=== PATIENT | male | born 1970 | race African-American/Black ===

== ENCOUNTER 2019-09-16 11:49 | Inpatient (IN) | payer OTHER ==
--- NOTE | 2019-09-16 12:29 | HP ---
COWS - Scale Resting Pulse: 0= [place] 80 or Below Sweatin= No chills or Flushing Restless Observation: 0= Sits Still Pupil Size: 0= Normal to Room Light Bone or Joint Aches: 0= None Runny Nose/ Eye Tearin= None GI Upset > 30mins: 0= None Tremor Observation: 0= None Yawning Observation: 0= None Anxiety or Irritability: 0= None Goose Flesh Skin: 0=Smooth Skin (just used this morning so cows are still low) COWS Score: 0 CIWA Score - Admission Criteria [facility]ASAS Guidelines: Admission for Medically Managed Detox: Requires at least one of the followin. CIWA greater than 12 2. Seizures within the past 24 hours 3. Delirium tremens within the past 24 hours 4. Hallucinations within the past 24 hours 5. Acute intervention needed for co occurring medical disorder 6. Acute intervention needed for co occurring psychiatric disorder 7. Severe withdrawal that cannot be handled at a lower level of care (continued vomiting, continued diarrhea, abnormal vital signs) requiring intravenous medication and/or fluids 8. Admitting History and Physical - Admission Chief Complaint: " I want to get clean." History of Present Illness: 48 year old male with history of opioid dependence with withdrawal, cocaine use disorder, alcohol use disorder. He is using at least 10-12 bags of heroin per day, last used this morning. He denies any overdoses. He is using $50 $60 cocaine per day, last used yesterday. He is drinking about 2x-4x/wk, 1 six pack or one pint of vodka per episode, last drank yesterday. He smokes 11 ciggs per day, since age 16 years old. He has been in detox in the past 2012 [facility]. He was abstinent and just relapsed 1 month ago. PMH: Osteoarthritis L Hip. Psurg: None but was getting Hip injections with cortisone Patient denies any legal issues. He is domiciled in the [place]. History Source: Patient Limitations to Obtaining History: No Limitations - Past Surgical History Past Surgical History: Yes: None - Smoking History Smoking history: Current every day smoker Have you smoked in the past 12 months: Yes Aproximately how many cigarettes per day: 11 - Alcohol/Substance Use Hx Alcohol Use: Yes ( six pack beer daily) Number of Drinks Daily: 6 History of Substance Use: reports: Cocaine, Heroin Date of Last Use: 09/16/19 - Social History Usual Living Arrangement: Yes: Alone Do you think of yourself as: Straight/Heterosexual ADL: Independent Occupation: peer advocate at [employer] History of Recent Travel: No Admission ROS S - HPI Allergies/Adverse Reactions: Allergies Allergy/AdvReac Type Severity Reaction Status Date / Time shellfish derived AdvReac Severe Difficulty Verified 09/16/19 12:05 Breathing - Ebola screening Have you traveled outside of the country in the last 21 days: No Have you had contact with anyone from an Ebola affected area: No Do you have a fever: No Patient History - Patient Medical History Other Medical History: Osteoarthritis - Patient Surgical History Past Surgical History: No - PPD History Previous Implant?: No Documented Results: Positive w/o proof Implanted On Prior [facility] Admission?: No Date: 06/21/19 Results: negative cxr PPD to be Administered?: No - Smoking Cessation Smoking history: Current every day smoker Have you smoked in the past 12 months: Yes Aproximately how many cigarettes per day: 11 Hx Chewing Tobacco Use: No Initiated information on smoking cessation: Yes 'Breaking Loose' booklet given: 09/16/19 - Substances abused Alcohol Substance route: Oral Frequency: 3-6 times per week Amount used: 6 pack of 24oz beers Age of first use: 18 Date of last use: 09/15/19 Heroin Substance route: Inhalation Frequency: Daily Amount used: $100 Age of first use: 20 Date of last use: 09/16/19 Cocaine Substance route: Smoking Frequency: Daily Amount used: $60-80 Age of first use: 27 Date of last use: 09/15/19 Crack Substance route: Smoking Frequency: Daily Amount used: $100 Age of first use: 27 Date of last use: 09/15/19 Admission Physical Exam S - Vital Signs Vital Signs: Vital Signs - 24 hr 09/16/19 11:56 Temperature 97 F L Pulse Rate 58 L Respiratory 18 Rate Blood Pressure 124/67 - Physical General Appearance: Yes: No Apparent Distress, Nourished HEENTM: Yes: EOMI, Hearing grossly Normal, Normal ENT Inspection, Normocephalic , Normal Voice, KWASI, Pharynx Normal, Tm's normal, Other (pupils are pinpoint) Respiratory: Yes: Chest Non-Tender, Lungs Clear, Normal Breath Sounds Neck: Yes: No masses,lesions,Nodules, Supple, Trachea in good position Breast: Yes: Within Normal Limits Cardiology: Yes: Regular Rhythm, Regular Rate, S1, S2 Abdominal: Yes: Normal Bowel Sounds, Non Tender, Flat Genitourinary: Yes: Within Normal Limits Back: Yes: Normal Inspection Musculoskeletal: Yes: full range of Motion, Gait Steady, Pelvis Stable Extremities: Yes: Normal Capillary Refill, Normal Inspection, Normal Range of Motion, Non-Tender 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 NML intact, Fully Oriented, Alert, Motor Strength 5/5, Normal Mood/Affect, Normal Response Integumentary: Yes: Normal Color, Warm Lymphatic: Yes: Within Normal Limits - Diagnostic (1) Opioid dependence, uncomplicated Current Visit: Yes Status: Acute Cleared for Admission [facility] - Detox or Rehab [facility] Level of Care: Medically Managed Detox Regimen/Protocol: Methadone Claeared for Rehab Admission: No Screened but not Admitted - Documentation of Visit Screened but not Admitted: No Inpatient Rehab Admission - Rehab Decision to Admit Inpatient rehab admission?: No
[2019-09-16] MEDS ORDERED: BISMUTH SUBSALICYLATE 262 MG/15 ML BTL PO PRN (12:36)
[2019-09-16] MEDS ORDERED: IBUPROFEN 400 MG TABLET (FP) PO PRN (12:36)
[2019-09-16] MEDS ORDERED: MAGNESIUM CITRATE 300 ML BOTTLE PO PRN (12:36)
[2019-09-16] MEDS ORDERED: cloNIDine HCL 0.1 MG TABLET PO PRN (12:36)
[2019-09-16] MEDS ORDERED: MAGNESIUM HYDROX 2400MG/30ML ORAL SUSPENSION 30 ML CUP PO PRN (12:36)
[2019-09-16] MEDS ORDERED: ACETAMINOPHEN 325 MG TABLET (FP) PO PRN ×2 (12:36)
[2019-09-16] MEDS ORDERED: MAG HYDROX/AL HYDROX/SIMETH 30 ML UNIT-DOSE CUP PO PRN (12:36)
[2019-09-16] MEDS ORDERED: METHADONE HCL 10 MG TABLET (FOR DETOX USE ONLY) PO ONE (13:45)
[2019-09-16 14:28] LABS: HEMOGLOBIN 13.6 GM/dL (11.7-16.9); MCHC 33.3 g/dl (32.0-35.9); MEAN CELL VOLUME 93.2 fl (80-96); MEAN PLT VOLUME 8.6 fl (7.5-11.1); PLATELET COUNT 269 K/MM3 (134-434); RBC 4.39 M/mm3 (4.00-5.60); RDW 13.1 % (11.9-15.9); WHITE BLOOD COUNT 4.5 K/mm3 (4.0-10.0)
[2019-09-16 14:38] LABS: ALBUMIN 3.6 g/dl (3.4-5.0); BLOOD UREA NITROGEN 17.6 mg/dL (7-18); CALCIUM 9.2 mg/dL (8.5-10.1); CREATININE 1.2 mg/dL (0.55-1.3); POTASSIUM 4.2 mmol/L (3.5-5.1); TOT PROT 7.7 g/dl (6.4-8.2)
[2019-09-16] MEDS: THIAMINE HCL 100 MG TABLET (FP) PO SCH (23:02)
[2019-09-17] MEDS ORDERED: METHADONE HCL 5 MG TABLET (FOR DETOX USE ONLY) ONE (08:48)
[2019-09-17] MEDS ORDERED: METHADONE HCL 10 MG TABLET (FOR DETOX USE ONLY) ONE (08:48)
[2019-09-17] MEDS ORDERED: METHADONE (DETOX) 20 MG, METHADONE (DETOX) 5 MG PO ONE (10:00)
[2019-09-17] MEDS: PRENATAL VITAMINS W/ FOLIC ACID TABLET (FP) PO SCH (10:08)
[2019-09-17] MEDS: NICOTINE 14 MG/24 HOURS TOPICAL PATCH TD SCH (10:09)
--- NOTE | 2019-09-17 10:45 | PN ---
BHS COWS - Scale Resting Pulse: 0= [place] 80 or Below Sweatin= Chills/Flushing Restless Observation: 1= Difficult to Sit Still Pupil Size: 0= Normal to Room Light Bone or Joint Aches: 2= Severe Diffuse Aches Runny Nose/ Eye Tearin= Nasal Congestion GI Upset > 30mins: 1= Stomach Cramp Tremor Observation of Outstretched Hands: 2= Slight Tremor Visible Yawning Observation: 2= >3x During Session Anxiety or Irritability: 2=Irritable/Anxious Goose Flesh Skin: 0=Smooth Skin COWS Score: 12 BHS Progress Note (SOAP) Subjective: sweats shakes body aches interrupted sleep poor appetite Objective: 09/17/19 10:45 Vital Signs Temperature 97.9 F 09/17/19 09:23 Pulse Rate 53 L 09/17/19 09:23 Respiratory Rate 18 09/17/19 09:23 Blood Pressure 134/73 09/17/19 09:23 O2 Sat by Pulse Oximetry (%) Laboratory Tests 09/16/19 09/16/19 09/16/19 10:50 10:50 10:50 WBC 4.5 RBC 4.39 Hgb 13.6 Hct 41.0 MCV 93.2 MCH 31.0 MCHC 33.3 RDW 13.1 Plt Count 269 MPV 8.6 Sodium 143 Potassium 4.2 Chloride 109 H Carbon Dioxide 30 Anion Gap 4 L BUN 17.6 Creatinine 1.2 Est GFR (CKD-EPI)AfAm 83.54 Est GFR (CKD-EPI)NonAf 72.08 Random Glucose 88 Calcium 9.2 Total Bilirubin 1.0 AST 20 ALT 22 Alkaline Phosphatase 133 H Total Protein 7.7 Albumin 3.6 RPR Titer Nonreactive HIV 1&2 Antibody Screen HIV P24 Antigen 09/16/19 12:00 WBC RBC Hgb Hct MCV MCH MCHC RDW Plt Count MPV Sodium Potassium Chloride Carbon Dioxide Anion Gap BUN Creatinine Est GFR (CKD-EPI)AfAm Est GFR (CKD-EPI)NonAf Random Glucose Calcium Total Bilirubin AST ALT Alkaline Phosphatase Total Protein Albumin RPR Titer HIV 1&2 Antibody Screen Negative HIV P24 Antigen Negative aaox3 ambulating no acute distress Assessment: 09/17/19 10:45 withdrawals Plan: continue detox increase fluids
[2019-09-17] MEDS: THIAMINE HCL 100 MG TABLET (FP) PO SCH (21:44)
[2019-09-17] MEDS: MELATONIN 5 MG TABLETS PO PRN (21:44)
[2019-09-17] MEDS: hydrOXYzine PAMOATE 25 MG CAPSULE (FP) PO PRN (21:44)
[2019-09-17] MEDS: MENTHOL/PHENOL 1 EACH UD MM PRN (21:45)
[2019-09-18] MEDS ORDERED: METHADONE HCL 10 MG TABLET (FOR DETOX USE ONLY) PO ONE (10:00)
[2019-09-18] MEDS: NICOTINE 14 MG/24 HOURS TOPICAL PATCH TD SCH (10:31)
[2019-09-18] MEDS: PRENATAL VITAMINS W/ FOLIC ACID TABLET (FP) PO SCH (10:31)
--- NOTE | 2019-09-18 13:36 | PN ---
BHS COWS - Scale Resting Pulse: 0= [place] 80 or Below Sweatin= Chills/Flushing Restless Observation: 1= Difficult to Sit Still Pupil Size: 0= Normal to Room Light Bone or Joint Aches: 1= Mild Discomfort Runny Nose/ Eye Tearin= Nasal Congestion GI Upset > 30mins: 1= Stomach Cramp Tremor Observation of Outstretched Hands: 1= Tremor [place], Not Seen Yawning Observation: 2= >3x During Session Anxiety or Irritability: 2=Irritable/Anxious Goose Flesh Skin: 0=Smooth Skin COWS Score: 10 BHS Progress Note (SOAP) Subjective: c/o of interrupted sleep, chills, sweats, body aches Objective: 09/18/19 13:34 Vital Signs Temperature 98.2 F 09/18/19 10:13 Pulse Rate 55 L 09/18/19 10:13 Respiratory Rate 16 09/18/19 10:13 Blood Pressure 138/72 09/18/19 10:13 O2 Sat by Pulse Oximetry (%) Laboratory Last Values WBC 4.5 K/mm3 (4.0-10.0) 09/16/19 10:50 RBC 4.39 M/mm3 (4.00-5.60) 09/16/19 10:50 Hgb 13.6 GM/dL (11.7-16.9) 09/16/19 10:50 Hct 41.0 % (35.4-49) 09/16/19 10:50 MCV 93.2 fl (80-96) 09/16/19 10:50 MCH 31.0 pg (25.7-33.7) 09/16/19 10:50 MCHC 33.3 g/dl (32.0-35.9) 09/16/19 10:50 RDW 13.1 % (11.9-15.9) 09/16/19 10:50 Plt Count 269 K/MM3 (134-434) 09/16/19 10:50 MPV 8.6 fl (7.5-11.1) 09/16/19 10:50 Sodium 143 mmol/L (136-145) 09/16/19 10:50 Potassium 4.2 mmol/L (3.5-5.1) 09/16/19 10:50 Chloride 109 mmol/L (98-107) H 09/16/19 10:50 Carbon Dioxide 30 mmol/L (21-32) 09/16/19 10:50 Anion Gap 4 MMOL/L (8-16) L 09/16/19 10:50 BUN 17.6 mg/dL (7-18) 09/16/19 10:50 Creatinine 1.2 mg/dL (0.55-1.3) 09/16/19 10:50 Est GFR (CKD-EPI)AfAm 83.54 09/16/19 10:50 Est GFR (CKD-EPI)NonAf 72.08 09/16/19 10:50 Random Glucose 88 mg/dL (74-106) 09/16/19 10:50 Calcium 9.2 mg/dL (8.5-10.1) 09/16/19 10:50 Total Bilirubin 1.0 mg/dL (0.2-1) 09/16/19 10:50 AST 20 U/L (15-37) 09/16/19 10:50 ALT 22 U/L (13-61) 09/16/19 10:50 Alkaline Phosphatase 133 U/L (45-117) H 09/16/19 10:50 Total Protein 7.7 g/dl (6.4-8.2) 09/16/19 10:50 Albumin 3.6 g/dl (3.4-5.0) 09/16/19 10:50 RPR Titer Nonreactive (NONREACTIVE) 09/16/19 10:50 HIV 1&2 Antibody Screen Negative 09/16/19 12:00 HIV P24 Antigen Negative 09/16/19 12:00 Assessment: 09/18/19 13:34 Aox3 no acute distress EENT WNL Full ROM ambulating in the unit withdrawal sx Plan: increase PO fluids continue detox one time dose Benadryl 50mg HS for sleep d/t insomnia continue detox continue to monitor
[2019-09-18] MEDS ORDERED: diphenhydrAMINE HCL 25 MG CAPSULE (FP) PO ONE (22:00)
[2019-09-18] MEDS: THIAMINE HCL 100 MG TABLET (FP) PO SCH (22:29)
[2019-09-18] MEDS: MENTHOL/PHENOL 1 EACH UD MM PRN (22:31)
[2019-09-19] MEDS ORDERED: METHADONE HCL 5 MG TABLET (FOR DETOX USE ONLY) ONE (08:44)
[2019-09-19] MEDS ORDERED: METHADONE HCL 10 MG TABLET (FOR DETOX USE ONLY) ONE (08:44)
[2019-09-19] MEDS: NICOTINE 14 MG/24 HOURS TOPICAL PATCH TD SCH (09:40)
[2019-09-19] MEDS: PRENATAL VITAMINS W/ FOLIC ACID TABLET (FP) PO SCH (09:40)
[2019-09-19] MEDS ORDERED: METHADONE (DETOX) 10 MG, METHADONE (DETOX) 5 MG PO ONE (10:00)
--- NOTE | 2019-09-19 12:47 | PN ---
BHS COWS - Scale Resting Pulse: 0= [place] 80 or Below Sweatin= Beads of Sweat on Face Restless Observation: 1= Difficult to Sit Still Pupil Size: 0= Normal to Room Light Bone or Joint Aches: 1= Mild Discomfort Runny Nose/ Eye Tearin= None GI Upset > 30mins: 0= None Tremor Observation of Outstretched Hands: 2= Slight Tremor Visible Yawning Observation: 1= 1-2x During Session Anxiety or Irritability: 2=Irritable/Anxious Goose Flesh Skin: 0=Smooth Skin COWS Score: 10 S Progress Note (SOAP) Subjective: c/o sweats, anxiety, headache. Objective: 09/19/19 13:10 Vital Signs 09/19/19 09/19/19 09/19/19 07:37 09:41 13:02 Temperature 97.7 F 97.2 F L 97.7 F Pulse Rate 52 L 51 L 63 Respiratory 18 18 18 Rate Blood Pressure 116/71 128/76 127/79 Laboratory Last Values WBC 4.5 K/mm3 (4.0-10.0) 09/16/19 10:50 RBC 4.39 M/mm3 (4.00-5.60) 09/16/19 10:50 Hgb 13.6 GM/dL (11.7-16.9) 09/16/19 10:50 Hct 41.0 % (35.4-49) 09/16/19 10:50 MCV 93.2 fl (80-96) 09/16/19 10:50 MCH 31.0 pg (25.7-33.7) 09/16/19 10:50 MCHC 33.3 g/dl (32.0-35.9) 09/16/19 10:50 RDW 13.1 % (11.9-15.9) 09/16/19 10:50 Plt Count 269 K/MM3 (134-434) 09/16/19 10:50 MPV 8.6 fl (7.5-11.1) 09/16/19 10:50 Sodium 143 mmol/L (136-145) 09/16/19 10:50 Potassium 4.2 mmol/L (3.5-5.1) 09/16/19 10:50 Chloride 109 mmol/L (98-107) H 09/16/19 10:50 Carbon Dioxide 30 mmol/L (21-32) 09/16/19 10:50 Anion Gap 4 MMOL/L (8-16) L 09/16/19 10:50 BUN 17.6 mg/dL (7-18) 09/16/19 10:50 Creatinine 1.2 mg/dL (0.55-1.3) 09/16/19 10:50 Est GFR (CKD-EPI)AfAm 83.54 09/16/19 10:50 Est GFR (CKD-EPI)NonAf 72.08 09/16/19 10:50 Random Glucose 88 mg/dL (74-106) 09/16/19 10:50 Calcium 9.2 mg/dL (8.5-10.1) 09/16/19 10:50 Total Bilirubin 1.0 mg/dL (0.2-1) 09/16/19 10:50 AST 20 U/L (15-37) 09/16/19 10:50 ALT 22 U/L (13-61) 09/16/19 10:50 Alkaline Phosphatase 133 U/L (45-117) H 09/16/19 10:50 Total Protein 7.7 g/dl (6.4-8.2) 09/16/19 10:50 Albumin 3.6 g/dl (3.4-5.0) 09/16/19 10:50 RPR Titer Nonreactive (NONREACTIVE) 09/16/19 10:50 HIV 1&2 Antibody Screen Negative 09/16/19 12:00 HIV P24 Antigen Negative 09/16/19 12:00 Labs noted. Assessment: 09/19/19 13:11 AOX3, in no acute respiratory distress. Full ROM, ambulating in the unit. Withdrawal symptoms. Plan: continue detox.
[2019-09-19] MEDS: MELATONIN 5 MG TABLETS PO PRN (22:07)
[2019-09-19] MEDS: THIAMINE HCL 100 MG TABLET (FP) PO SCH (22:07)
[2019-09-19] MEDS: hydrOXYzine PAMOATE 25 MG CAPSULE (FP) PO PRN (22:07)
[2019-09-19] MEDS: METHOCARBAMOL 500 MG TABLET PO PRN (22:08)
[2019-09-20] MEDS ORDERED: METHADONE HCL 10 MG TABLET (FOR DETOX USE ONLY) PO ONE (10:00)
[2019-09-20] MEDS: PRENATAL VITAMINS W/ FOLIC ACID TABLET (FP) PO SCH (10:10)
[2019-09-20] MEDS: hydrOXYzine PAMOATE 25 MG CAPSULE (FP) PO PRN ×2 (10:11→22:00)
[2019-09-20] MEDS: NICOTINE 14 MG/24 HOURS TOPICAL PATCH TD SCH (10:11)
--- NOTE | 2019-09-20 11:43 | PN ---
BHS COWS - Scale Resting Pulse: 1= [place] 81-100 Sweatin= Chills/Flushing Restless Observation: 1= Difficult to Sit Still Pupil Size: 0= Normal to Room Light Bone or Joint Aches: 1= Mild Discomfort Runny Nose/ Eye Tearin= None GI Upset > 30mins: 0= None Tremor Observation of Outstretched Hands: 0= None Yawning Observation: 4= Several Times/Minute Anxiety or Irritability: 1=Feels Anxious/Irritable Goose Flesh Skin: 0=Smooth Skin COWS Score: 9 BHS Progress Note (SOAP) Subjective: pt here with history of opioid dependence with withdrawal, cocaine use disorder , alcohol use disorder. O: Vital Signs - 24 hr 09/19/19 09/19/19 09/19/19 13:02 17:15 21:33 Temperature 97.7 F 98.1 F 96.1 F L Pulse Rate 63 52 L 52 L Respiratory 18 18 18 Rate Blood Pressure 127/79 124/74 124/65 09/20/19 09/20/19 09/20/19 00:30 06:00 09:46 Temperature 97.9 F 98.1 F Pulse Rate 57 L 60 Respiratory 18 18 18 Rate Blood Pressure 103/59 L 136/72 Laboratory Tests 09/16/19 09/16/19 09/16/19 10:50 10:50 10:50 WBC 4.5 RBC 4.39 Hgb 13.6 Hct 41.0 MCV 93.2 MCH 31.0 MCHC 33.3 RDW 13.1 Plt Count 269 MPV 8.6 Sodium 143 Potassium 4.2 Chloride 109 H Carbon Dioxide 30 Anion Gap 4 L BUN 17.6 Creatinine 1.2 Est GFR (CKD-EPI)AfAm 83.54 Est GFR (CKD-EPI)NonAf 72.08 Random Glucose 88 Calcium 9.2 Total Bilirubin 1.0 AST 20 ALT 22 Alkaline Phosphatase 133 H Total Protein 7.7 Albumin 3.6 RPR Titer Nonreactive HIV 1&2 Antibody Screen HIV P24 Antigen 09/16/19 12:00 WBC RBC Hgb Hct MCV MCH MCHC RDW Plt Count MPV Sodium Potassium Chloride Carbon Dioxide Anion Gap BUN Creatinine Est GFR (CKD-EPI)AfAm Est GFR (CKD-EPI)NonAf Random Glucose Calcium Total Bilirubin AST ALT Alkaline Phosphatase Total Protein Albumin RPR Titer HIV 1&2 Antibody Screen Negative HIV P24 Antigen Negative a/p: OUD- methadone detox- d/w pt half-way MAT- 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
[2019-09-20] MEDS: THIAMINE HCL 100 MG TABLET (FP) PO SCH (21:47)
[2019-09-20] MEDS: METHOCARBAMOL 500 MG TABLET PO PRN (22:00)
[2019-09-21] MEDS ORDERED: METHADONE HCL 5 MG TABLET (FOR DETOX USE ONLY) PO ONE (06:00)
--- NOTE | 2019-09-21 09:20 | DS ---
[facility] Detox Discharge Summary Admission Date: 09/16/19 Discharge Date: 09/21/19 - History Present History: Alcohol Dependence, Cocaine Dependence, Opioid Dependence Pertinent Past History: 48 year old male with history of opioid dependence with withdrawal, cocaine use disorder, alcohol use disorder-completed detox, pt states he will go for outpt treatment and 1:1 counseling. Pt is a peer support counselor Vital Signs - 24 hr 09/20/19 09/20/19 09/20/19 09:46 13:29 17:41 Temperature 98.1 F 97.9 F 98.6 F Pulse Rate 60 54 L 52 L Respiratory 18 16 18 Rate Blood Pressure 136/72 119/63 129/72 09/20/19 09/21/19 09/21/19 21:56 00:30 03:52 Temperature 98.2 F Pulse Rate 57 L Respiratory 18 18 16 Rate Blood Pressure 118/66 09/21/19 08:45 Temperature 97.9 F Pulse Rate 59 L Respiratory 18 Rate Blood Pressure 109/59 L Laboratory Tests 09/16/19 09/16/19 09/16/19 10:50 10:50 10:50 WBC 4.5 RBC 4.39 Hgb 13.6 Hct 41.0 MCV 93.2 MCH 31.0 MCHC 33.3 RDW 13.1 Plt Count 269 MPV 8.6 Sodium 143 Potassium 4.2 Chloride 109 H Carbon Dioxide 30 Anion Gap 4 L BUN 17.6 Creatinine 1.2 Est GFR (CKD-EPI)AfAm 83.54 Est GFR (CKD-EPI)NonAf 72.08 Random Glucose 88 Calcium 9.2 Total Bilirubin 1.0 AST 20 ALT 22 Alkaline Phosphatase 133 H Total Protein 7.7 Albumin 3.6 RPR Titer Nonreactive HIV 1&2 Antibody Screen HIV P24 Antigen 09/16/19 12:00 WBC RBC Hgb Hct MCV MCH MCHC RDW Plt Count MPV Sodium Potassium Chloride Carbon Dioxide Anion Gap BUN Creatinine Est GFR (CKD-EPI)AfAm Est GFR (CKD-EPI)NonAf Random Glucose Calcium Total Bilirubin AST ALT Alkaline Phosphatase Total Protein Albumin RPR Titer HIV 1&2 Antibody Screen Negative HIV P24 Antigen Negative a/p: completed detox- f/u outpt for use disorders - Physical Exam Results Vital Signs: Vital Signs Temperature 97.9 F 09/21/19 08:45 Pulse Rate 59 L 09/21/19 08:45 Respiratory Rate 18 09/21/19 08:45 Blood Pressure 109/59 L 09/21/19 08:45 O2 Sat by Pulse Oximetry (%) - Treatment Hospital Course: Detox Protocol Followed, Detoxed Safely, Responded well, Discharged Condition Good - Medication Discharge Medications: Ambulatory Orders NK [No Known Home Medication] 09/16/19
[2019-09-21 10:04] VITALS: BP 116/65; PULSE 64; TEMP 98.2
== END 2019-09-21 10:10 | disposition home or self-care (01) | DRG 773 ==
LOC: YASAS 11:49 → Y6N 13:01 → UNDODISIN 09-19 22:00
PROVIDERS: ADMIT Allergy & Immunology; ATTEND Allergy & Immunology
PROC: HZ2ZZZZ Detoxification Services for Substance Abuse Treatment (ICD-10-PCS; principal; 2019-09-16)
DX: F11.23 Opioid dependence with withdrawal (principal); F10.230 Alcohol dependence with withdrawal, uncomplicated; F14.20 Cocaine dependence, uncomplicated; F17.210 Nicotine dependence, cigarettes, uncomplicated; M16.12 Unilateral primary osteoarthritis, left hip; Z91.013 Allergy to seafood
CPT/HCPCS: 36415; 71046-TC-FY; 80053; 85027; 86593; 87389; J0735

== ENCOUNTER 2020-09-19 15:13 | Inpatient (IN) | payer OTHER ==
[2020-09-19] MEDS ORDERED: METHADONE HCL 10 MG TABLET (FOR DETOX USE ONLY) PO ONE (18:04)
[2020-09-19] MEDS ORDERED: cloNIDine HCL 0.1 MG TABLET PO PRN (18:04)
[2020-09-19] MEDS ORDERED: BISMUTH SUBSALICYLATE 524 MG/30 ML UD PO PRN (18:05)
[2020-09-19] MEDS ORDERED: MAGNESIUM HYDROX 2400MG/30ML ORAL SUSPENSION 30 ML CUP PO PRN (18:05)
[2020-09-19] MEDS ORDERED: NICOTINE POLACRILEX 2 MG GUM BUC PRN (18:05)
[2020-09-19] MEDS ORDERED: MAG HYDROX/AL HYDROX/SIMETH 30 ML UNIT-DOSE CUP PO PRN (18:05)
[2020-09-19] MEDS ORDERED: ACETAMINOPHEN 325 MG TABLET (FP) PO PRN ×2 (18:05)
[2020-09-19] MEDS ORDERED: IBUPROFEN 400 MG TABLET (FP) PO PRN (18:05)
[2020-09-19] MEDS ORDERED: ONDANSETRON *ODT* 4 MG TABLET SL PRN (18:05)
[2020-09-19] MEDS ORDERED: MENTHOL/PHENOL 1 EACH UD MM PRN (18:05)
[2020-09-19] MEDS ORDERED: MAGNESIUM CITRATE 300 ML BOTTLE PO PRN (18:05)
[2020-09-19] MEDS ORDERED: hydrOXYzine PAMOATE 25 MG CAPSULE (FP) PO PRN (18:14)
[2020-09-19 18:16] VITALS: BMI 23.8
[2020-09-19] MEDS: diazePAM 5 MG TABLET PO PRN (19:15)
[2020-09-19] MEDS ORDERED: hydrOXYzine PAMOATE 25 MG CAPSULE (FP) PO SCH (22:00)
[2020-09-19] MEDS: METHOCARBAMOL 500 MG TABLET PO PRN (22:07)
[2020-09-19] MEDS: THIAMINE HCL 100 MG TABLET (FP) PO SCH (22:07)
[2020-09-19] MEDS: MELATONIN 5 MG TABLETS PO SCH (22:07)
[2020-09-20] MEDS ORDERED: METHADONE HCL 10 MG TABLET (FOR DETOX USE ONLY) ONE (08:40)
[2020-09-20] MEDS ORDERED: METHADONE HCL 5 MG TABLET (FOR DETOX USE ONLY) ONE (08:40)
[2020-09-20] MEDS: METHOCARBAMOL 500 MG TABLET PO PRN ×2 (09:18→17:07)
[2020-09-20] MEDS ORDERED: PRENATAL VITAMINS W/ FOLIC ACID TABLET (FP) PO SCH (10:00)
[2020-09-20] MEDS ORDERED: METHADONE (DETOX) 20 MG, METHADONE (DETOX) 5 MG PO ONE (10:00)
[2020-09-20 11:10] LABS: HEMATOCRIT 32.6 % (35.4-49); HEMOGLOBIN 11.1 GM/dL (11.7-16.9); MCH 31.2 pg (25.7-33.7); MCHC 33.9 g/dl (32.0-35.9); MEAN CELL VOLUME 91.9 fl (80-96); MEAN PLT VOLUME 8.5 fl (7.5-11.1); PLATELET COUNT 211 K/MM3 (134-434); RBC 3.55 M/mm3 (4.00-5.60); RDW 13.2 % (11.9-15.9)
[2020-09-20 11:12] LABS: POTASSIUM 3.3 mmol/L (3.5-5.1)
[2020-09-20 11:19] LABS: CALCIUM 7.9 mg/dL (8.5-10.1)
[2020-09-20 11:20] LABS: BLOOD UREA NITROGEN 12.1 mg/dL (7-18)
[2020-09-20 11:22] LABS: BILIRUBIN,TOTAL 0.2 mg/dL (0.2-1); TOT PROT 6.3 g/dl (6.4-8.2)
[2020-09-20] MEDS ORDERED: POTASSIUM CHLORIDE TABS 20 MEQ TABLET.ER (FP) PO ONE ×2 (13:16→18:00)
[2020-09-20] MEDS: diazePAM 5 MG TABLET PO PRN (17:07)
[2020-09-20] MEDS: MELATONIN 5 MG TABLETS PO SCH (21:37)
[2020-09-20] MEDS: THIAMINE HCL 100 MG TABLET (FP) PO SCH (21:37)
[2020-09-20] MEDS ORDERED: traZODone HCL 50 MG TABLET (FP) PO SCH (22:00)
[2020-09-21 09:47] VITALS: BP 132/71; PULSE 61; TEMP 97.6
[2020-09-21] MEDS ORDERED: METHADONE HCL 10 MG TABLET (FOR DETOX USE ONLY) PO ONE (10:00)
[2020-09-22] MEDS ORDERED: METHADONE (DETOX) 10 MG, METHADONE (DETOX) 5 MG PO ONE (10:00)
[2020-09-23] MEDS ORDERED: METHADONE HCL 10 MG TABLET (FOR DETOX USE ONLY) PO ONE (10:00)
[2020-09-24] MEDS ORDERED: METHADONE HCL 5 MG TABLET (FOR DETOX USE ONLY) PO ONE (06:00)
== END 2020-09-21 11:12 | disposition left against medical advice (07) | DRG 770 ==
LOC: YASAS 15:13 → Y3N 17:50
PROVIDERS: ADMIT Allergy & Immunology; ATTEND Allergy & Immunology
PROC: HZ2ZZZZ Detoxification Services for Substance Abuse Treatment (ICD-10-PCS; principal; 2020-09-19)
DX: F11.23 Opioid dependence with withdrawal (principal); F14.20 Cocaine dependence, uncomplicated; F17.210 Nicotine dependence, cigarettes, uncomplicated; F19.282 Other psychoactive substance dependence with psychoactive substance-induced sleep disorder; F51.05 Insomnia due to other mental disorder; F41.9 Anxiety disorder, unspecified; F32.9 Major depressive disorder, single episode, unspecified; E87.6 Hypokalemia; I10 Essential (primary) hypertension; D64.9 Anemia, unspecified; M16.0 Bilateral primary osteoarthritis of hip; R74.8 Abnormal levels of other serum enzymes; R76.11 Nonspecific reaction to tuberculin skin test without active tuberculosis; Z68.23 Body mass index [BMI] 23.0-23.9, adult; Z91.013 Allergy to seafood
CPT/HCPCS: 36415; 80053; 84132; 85027; 86780; C9803; U0003